=== PATIENT | male | born 1990 | race Caucasian/White ===

== ENCOUNTER 2017-10-26 14:40 | Emergency (ER) | payer OTHER ==
[~2017-10-26] VITALS: Ht 180.3 cm; Wt 174.7 kg
[2017-10-26 14:50] VITALS: TEMP 37.2; Ht 180.3 cm; Wt 174.7 kg
[2017-10-26] MEDS ORDERED: ASPI-563 PO (15:13)
[2017-10-26] MEDS ORDERED: METH4PAK PO (15:43)
[2017-10-26] MEDS ORDERED: TRAM-10 PO (15:43)
[2017-10-26 16:21] VITALS: BP 147/91; PULSE 98; O2SAT 97
--- NOTE | 2017-10-26 17:01 | EMERGENCY ROOM VISIT NOTE ---
History First contact with patient: 15:06 Chief Complaint: NECK PAIN Stated Complaint: NECK SHOULDER PAIN - LEFT SHOULDER History of Present Illness The patient is a 27 year old male who presents to the Emergency Room with complaints of neck pain radiating into the left scapular region, across the top of the shoulder and occasionally onto the left chest wall. Patient reports that he was seen yesterday at [facility] in [place], and was eventually referred to the [place] emergency department to rule out cardiac chest pain. The patient reports that he had a comprehensive workup, showing no evidence for acute cardiac etiologies. They did do a CT of the neck, showing notable disc deterioration of C5-6. The patient reports that the doctor then smiled at him, and suggested that he follow-up with his PCP for further management. The patient reports that he does not understand the real reason for his pain as they did not provide any education regarding the cause of his pain. The patient denies any prior history of chronic neck pain or prior injuries. 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 He reports that the job is very repetitive. 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 The patient is right-hand dominant, and rates his discomfort a 6 out of 10. Review of Systems 10 system review was performed and was negative except for pertinent positives and negatives as indicated in history of present illness Past Medical/Surgical History Medical Problems: (1) No significant past medical history Surgical Problems: (1) No history of previous surgery Family History Unremarkable Social History Smoking Status: Never Smoker Alcohol Use: occasionally Marital Status: single Occupation Status: employed Current/Historical Medications Scheduled Methylprednisolone (Medrol Dosepak), 0 PO DAILY Scheduled PRN Aspirin-Caffeine ([employer] 500-32.5 mg), 1 TAB PO UD PRN for Pain Tramadol (Ultram), 1 TAB PO Q4H PRN for Pain Physical Exam Vital Signs Date Time Temp Pulse Resp B/P (MAP) Pulse Ox O2 Delivery O2 Flow Rate FiO2 10/26/17 16:21 98 20 147/91 97 10/26/17 14:50 37.2 89 20 156/97 96 Room Air Physical Exam CONSTITUTIONAL: Morbidly obese male, alert and oriented X 3 with positive affect. Patient appears in mild discomfort. HEENT: Normocephalic, atraumatic. Pupils equal, round and reactive. NECK: Patient has worsening left shoulder, neck and left scapular pain with lateral gaze. RESPIRATORY: Clear to auscultation bilaterally with no wheezing, crackles, rhonchi or stridor. CARDIOVASCULAR: Regular rate and rhythm with no murmurs, rubs or gallops. MUSCULOSKELETAL: The patient has no tenderness to palpation about the shoulder , and no significant worsening pain with gentle range of motion of the shoulder. He has no focal tenderness to palpation of the acromioclavicular joint. No JVD or carotid bruits noted. No nuchal rigidity. INTEGUMENTARY: No rash or other significant dermatologic conditions noted. NEUROLOGIC: Left deltoid, hand and fingers are sensory intact. Medical Decision & Procedures ED Course Patient history and physical exam were performed. Nurse's notes were reviewed. Vital signs were reviewed, showing an elevated blood pressure 156/97. The patient otherwise does not appear in any significant distress. The patient does have positive physical exam findings consistent with a left cervical radiculitis. The patient has already had an extensive cardiac workup that was performed and normal. He also had a CT of the cervical spine showing significant degenerative disc disease. The patient was encouraged to follow-up with his PCP or orthopedics for further reevaluation and management. I did encourage the patient to contact his insurance carrier to see if he needs a referral before calling orthopedics. He currently is not established with a PCP. The patient reports that he usually wakes up on his stomach with his right arm above his head. The patient was encouraged to try to sleep on his back with a soft towel around the neck. He was also encouraged to apply ice to the base of the neck. Ibuprofen and Tylenol in alternating fashion for baseline pain relief. The patient will be provided prescriptions for a Medrol Dosepak and tramadol. The patient was happy with plan of care, voiced understanding of his condition, and rated his discomfort a 4 out of 10 at the conclusion of my exam. Medical Decision See previous section. History and clinical exam findings are consistent with an acute cervical radiculitis. The patient has already had extensive workup which did not show evidence for acute cardiopulmonary process. The patient was , however, instructed to return for any developing chest pain, shortness of breath, fever or other concerning symptoms. [place] Drug Monitoring Program Search Results: patient reviewed within database, no issues identified Medication Reconcilliation Current Medication List: was personally reviewed by me Blood Pressure Screening Patient's blood pressure: Elevated blood pressure Blood pressure disposition: Referred to PCP Impression Primary Impression: Radiculitis of left cervical region Departure Information Dispostion Home / Self-Care Condition GOOD Prescriptions Tramadol (Ultram) 50 Mg Tab 1 TAB PO Q4H Y for Pain, #15 TAB For Initial Treatment Prov: Ney Leal PA 10/26/17 Methylprednisolone (MEDROL DOSEPAK) 4 Mg Kennedy 0 PO DAILY, #1 PKT Prov: Ney Leal PA 10/26/17 Referrals Roberto Burt D.O. No Doctor, Assigned (PCP) Forms HOME CARE DOCUMENTATION FORM, IMPORTANT VISIT INFORMATION Patient Instructions My [facility], ED Cervical Radiculopathy Additional Instructions Intermittently apply ice to the base of the neck. Either sleep on your back or in a recliner with a towel wrapped around your neck for support. Ibuprofen 800 mg and/or Tylenol 1000 mg every 8 hours. You may also alternate these medications for more effective pain relief: Ibuprofen --4 HRS--> Tylenol --4 HRS--> ibuprofen --4 HRS--> Tylenol .... Ultram if needed for worse pain. Take Medrol Dosepak as prescribed. Follow-up with your family doctor for further management. If your insurance does not require a referral, you may also follow-up with orthopedics for further reevaluation and management. FOR WORK: Please excuse from work Thursday-Thursday, 10/26-.
== END 2017-10-26 16:22 | disposition home or self-care (01) ==
LOC: C.EDB 14:42 → C.EDC 16:22
DX: M54.12 Radiculopathy, cervical region (principal); M50.322 Other cervical disc degeneration at C5-C6 level; R03.0 Elevated blood-pressure reading, without diagnosis of hypertension